=== PATIENT | male | born 1955 | race American Indian/Alaskan Native ===

== ENCOUNTER 2016-04-06 11:21 | Inpatient (IN) | payer MEDICARE, OTHER ==
[2016-04-06] MEDS ORDERED: NORCO 5/325 ONE (12:51)
--- NOTE | 2016-04-06 15:12 | Admit Criteria Form ---
Admission Criteria Documentation: UROLOGIC DISEASE [facility] Clinical Indications for Admission to Inpatient Care (Place ' X' for any and all applicable criteria): Hospital admission is needed for appropriate care of the patient because of ANY ONE of the following: [ ]I. New-onset Reduced urine output, or hydronephrosis remaining after emergency or observation level care indicated by ANY ONE the following (1)(2) [ ]a) Urine output less than 0.5 mL/kg/hour for 6 hours in adult [ ]b) Anuria (urine output less than 0.1 mL/kg/hour) for 4 hours in any age group [ ]c) Reduced output in child as indicated by ANY ONE of the following (3) [ ]i) Urine output less than 2 mL/kg/hour for 6 hours in younger than 2 [ ]ii) Urine output less than 1 mL/kg/hour for 6 hours in child younger than 12 years [ ]iii) Urine output less than 0.75 mL/kg/hour for 6 hours in adolescent younger than 18 years [ ]II. Acute urinary retention requiring inpatient management as indicated by ANY ONE of the following(1)(13): [ ]a) Hemodynamic instability remaining after emergency or observation level care (as appropriate) [ ]b) Retention cannot be alleviated via emergency or observation level care (eg, urinary catheter placement) [ ]c) Acute neurologic etiology (eg, cauda equina) [ ]d) Dehydration or other complications not manageable with emergency or observation level care [ ]e) Acute kidney injury (that does not qualify as Acute renal failure ) requiring inpatient care indicated by ALL of the following(5)(6)(7)(8) (9): [ ]i) Acute kidney injury indicated by ANY ONE of the following: [ ]1) 2-fold or more rise in serum creatinine from baseline [ ]2) Reduction of more than 50% in estimated glomerular filtration rate from baseline [ ]3) Urine output less than 0.5 mL/kg/hr for 12 hours despite adequate volume status [ ]ii) Worsening clinical status (eg, rising creatinine) despite outpatient and observation care treatment (eg, hydration) [ ]III. Gross hematuria requiring inpatient management as indicated by ANY ONE of the following(1)(2): [ ]a) Evidence of renal obstruction [ ]b) Reduced urine output (eg urine output <0.5mL/kg per hr over 6 hrs) [ ]c) Clot retention after urinary catheterization and irrigation [ ]d) Anemia [ ]e) Systemic cause needing inpatient treatment (eg, Goodpasture syndrome) [X ]IV. Urologic infection requiring inpatient care as indicated by ANY ONE of the following(10)(11)(12): [ ]a) Dehydration that is severe or persistent [ ]b) Hemodynamic instability [ ]c) Failure of, or inability to tolerate, outpatient treatment regimen [ ]d) Increased creatinine without known prior cause [ X]e) Known renal or urologic abnormalities (eg, indwelling catheter , structural abnormalities) [ ]f) Recent urologic manipulation [ ]g) Urinary obstruction [ ]h) Immunocompromised state [ ]V. Renal disease needing inpatient care (eg, nephritis, nephrosis) as indicated by ANY ONE of the following(2)(3)(4): [ ]a) Systemic cause (eg, Goodpasture syndrome) needing inpatient care (5) [ ]b) Rapidly progressive disease needing inpatient care (eg, plasmapheresis, immunosuppression)(6) [ ]c) Hemoptysis [ ]d) Hemolysis or thrombosis [ ]e) Anasarca needing inpatient care [ ]f) Hemolytic uremic syndrome(7)(8) [ ]g) Acute renal failure [ ]h) Significant uremic complications as indicated by ANY ONE of the following(1)(2)(3): [ ]i) Outpatient therapy is ineffective or not feasible for ANY ONE of the following: [ ]1) Severe heart failure [ ]2) Severe hypertension [ ]3) Pleural effusion [ ]4) Pericarditis or pericardial effusion [ ]ii) Cardiac arrhythmias of immediate concern [ ]iii) Recurrent seizures [ ]iv) Bleeding abnormalities (eg, platelet dysfunction) with active (eg, gastrointestinal) bleeding [ ]v) Dialysis indicated before long-term access or ambulatory arrangements can be made [ ]vi) Significant metabolic or electrolyte abnormalities (eg , severe acidosis or hyperkalemia) [ ]vii) Intractable nausea or vomiting [ ]viii) Encephalopathy [ ]. New-onset oliguria, anuria, or hydronephrosis not responsive to emergency and observation care treatment (as appropriate)(1) [ ]VII. Trauma to renal, genital, or urologic system requiring inpatient medical care(14)(15)(16)(17) [ ]VIII.Scrotal, testicular, or epididymal disorder requiring inpatient care indicated by ANY ONE of the following(1)(14)(15)(16): [ ]a) Scrotal edema or infection not manageable with emergency or observation level care [ ]b) Orchitis not manageable with emergency or observation level care [ ]c) Epididymitis not manageable with emergency or observation level of care [ ]d) Other scrotal, testicular, or epididymal disorder (eg, infection, inflammation) not manageable with emergency or observation level care [ ]IX. Urologic Disease and ALL of the following: [ ]a) Symptom or finding for which emergency and observation care have failed or are not considered appropriate (Use General Criteria: Observation Care as appropriate) [ ]b) Presence of ANY ONE of the following: [ ]i) A General Admission Criteria [ ]ii) A Pediatric General Admission Criteria The original [facility] content created by [facility] has been revised. The portions of the content which have been revised are identified through the use of italic text or in bold, and [facility] has neither reviewed nor approved the modified material. All other unmodified content is copyright [facility]. Please see references footnoted in the original [facility] edition 2016 Admission Criteria Met: Yes
[2016-04-06] MEDS ORDERED: ROCEPHIN/NS 1 GM/50 ML 1 GM/50 ML BAG IV ONE (16:00)
[2016-04-06] MEDS ORDERED: TYLENOL PO PRN (17:34)
[2016-04-06] MEDS ORDERED: ZOFRAN IV PRN (17:34)
[2016-04-06] MEDS ORDERED: NORCO 5/325 PO PRN (17:34)
--- NOTE | 2016-04-06 17:41 | History and Physical Report ---
History of Present Illness Date of examination: 04/06/16 Chief complaint: Blood in the urine History of present illness: Patient is a 61-year-old man with history of BPH and urinary obstruction with chronic indwelling Castro the urethral stents initially presented to [facility] today with constant progressively worse, bright red blood from penis. He was seen by ED staff at [facility] and his urologist Dr. Kinney told him to bring patient to [facility] where he had privileges for hospitalist to admit this his patient. It appears that [facility] emergency room staff changed out his Castro catheter which may have exacerbated hematuria. He was found have urinary tract infection with evidence of sepsis. The patient denies any chest pain, shortness of breath, abdominal pain, fevers chills. Patient does have bilateral back pain which is chronic. Past History Past Medical History: other (as hpi) Past Surgical History: Other (Uretheral stents) Social history: smoking, full code. denies: alcohol abuse, prescription drug abuse, IV drug use Family history: no significant family history (he denies) Medications and Allergies Allergies Allergy/AdvReac Type Severity Reaction Status Date / Time No Known Allergies Allergy Verified 06/27/13 21:15 Home Medications Medication Instructions Recorded Confirmed Last Taken Type Tamsulosin [Flomax] 0.4 mg PO QDAY 11/23/12 04/06/16 02/27/14 History Ferrous Gluconate [Iron] 1 tab PO QDAY 01/20/13 04/06/16 02/26/14 History Cephalexin [Keflex] 500 mg PO QID #20 capsule 01/12/16 04/06/16 Unknown Rx Sodium Bicarbonate 325 mg PO DAILY 01/12/16 04/06/16 Unknown History Active Meds: Active Medications Acetaminophen (Tylenol) 650 mg PO Q6H PRN PRN Reason: Non Cardiac Pain or Temp>100.5 Acetaminophen/Hydrocodone Bitart ([place] 5/325) 1 each PO Q4H PRN PRN Reason: Pain, Moderate (4-6) Sodium Chloride (Nacl 0.9% 1000 Ml) mls @ 100 mls/hr IV DIRECT WILLIE Ondansetron HCl (Zofran) 4 mg IV Q4H PRN PRN Reason: Nausea And Vomiting Pantoprazole Sodium (Protonix) 40 mg PO QDAY WILLIE Sodium Bicarbonate (Sodium Bicarbonate) 325 mg PO DAILY WILLIE Tamsulosin HCl (Flomax) 0.4 mg PO QDAY WILLIE Review of Systems All systems: negative (as HPI and all other ROS reviewed and negative.) Exam - Physical Exam Narrative exam: VSS reviewed GEN: Thin frail man, NAD, AWAKE, ALERT, ORIENTATED 3 HEENT: NCAT, PERRL, EOMI, OP CLEAR NECK: SUPPLE, NO THYROMEGALY, NO JVD, NO LAD CVS: RRR, NORMAL S1S2 LUNGS/CHEST: CTA B, NORMAL CHEST EXPANSION B, GOOD AIR ENTRY B ABD: SOFT NTND, GBS, NO REBOUND OR GUARDING, no CVA tenderness, uncircumcised penis catheter in place with blood around the meatus EXT/SKIN: NO SIGNIFICANT EDEMA OR RASH MSK: FROM X 4 EXTREMITIES NEURO: CN 2-12 GROSSLY INTACT, NO FOCAL DEFICITS PSY: CALM Assessment and Plan [employer] EMR not working properly, due to downtime. Vitals, labs, tests are not crossing over into [employer]. Patient is a 61-year-old man with history of BPH and urinary obstruction with chronic indwelling Castro the urethral stents initially presented to [facility] today with constant progressively worse, bright red blood from penis. He was seen by ED staff at [facility] and his urologist Dr. Kinney told him to bring patient to [facility] where he had privileges for hospitalist to admit this his patient. It appears that [facility] emergency room staff changed out his Castro catheter which may have exacerbated hematuria. He was found have urinary tract infection with evidence of sepsis. The patient denies any chest pain, shortness of breath, abdominal pain, fevers chills. Patient does have bilateral back pain which is chronic. 1. Uti with sepsis: get urine ctx, iv abx, ivf 2. Suspect ARF due to bph/Uropathy: get IV fluid, Dr. Driscoll is already aware of patient 3. Tobacco dependancy: counseling done.
[2016-04-06] MEDS ORDERED: NACL 0.9% 1000 ML 1,000 ML ONE (19:04)
[2016-04-06] MEDS: NACL 0.9% 1000 ML 1,000 ML IV SCH ×2 (19:20→23:31)
[2016-04-07 03:47] LABS: Hematocrit 43.2 % (35.5-45.6); Hemoglobin 14.1 gm/dl (11.8-15.2); Mean Corpuscular HGB Conc 33 % (32-34); Mean Corpuscular Hemoglobin 31 pg (28-32); Mean Corpuscular Volume 95 fl (84-94); Platelet Count 237 K/mm3 (140-440); Red Blood Count 4.55 M/mm3 (3.65-5.03); Red Cell Distribution Width 13.2 % (13.2-15.2)
[2016-04-07 03:48] LABS: Anisocytosis Few; Platelet Estimate Consistent w Auto
[2016-04-07 03:49] LABS: Diff Status Complete; INR 0.99 (0.87-1.13); Partial Thromboplastin Time 25.9 Sec. (24.2-36.6)
[2016-04-07 07:53] LABS: Hematocrit 32.9 % (35.5-45.6); Hemoglobin 10.7 gm/dl (11.8-15.2); Mean Corpuscular HGB Conc 33 % (32-34); Mean Corpuscular Hemoglobin 31 pg (28-32); Mean Corpuscular Volume 95 fl (84-94); Platelet Count 184 K/mm3 (140-440); Red Blood Count 3.46 M/mm3 (3.65-5.03)
[2016-04-07 07:54] LABS: White Blood Count 21.4 K/mm3 (4.5-11.0)
[2016-04-07 08:56] LABS: Calcium 8.2 mg/dL (8.4-10.2); Chloride 103.4 mmol/L (98-107); Potassium 3.6 mmol/L (3.6-5.0)
[2016-04-07] MEDS: FLOMAX PO SCH (09:41)
[2016-04-07] MEDS: PROTONIX PO SCH (09:41)
[2016-04-07] MEDS: SODIUM BICARBONATE PO SCH (09:41)
[2016-04-07] MEDS ORDERED: MAXIPIME/NS 1 GM/100 ML 1 GM/100 ML BAG IV SCH (12:00)
--- NOTE | 2016-04-07 12:06 | Progress Note ---
Assessment and Plan URINARY RETENTION / BPH AKD/CKD LEUKOCYTOSIS - AFEB - Cr 2.5 today - get DAKOTA - cath in - placed in ER over wire 22fr - f/u outpt 3-4 weeks when discharged Subjective Date of service: 04/07/16 Interval history: resting comfotably Objective - Constitutional Vitals: Vital Signs - 12hr 04/07/16 04/07/16 02:25 07:45 Temperature 97.4 F L Pulse Rate [ 80 Radial] Respiratory 18 16 Rate Blood Pressure 138/55 [Left Radial Artery] O2 Sat by Pulse 98 Oximetry - Gastrointestinal Rectal Exam: other (cath clear yellow) - Labs CBC & Chem 7: 04/07/16 07:29 04/07/16 07:29 Labs: Abnormal lab results 04/07/16 04/07/16 Range/Units 07:29 07:29 WBC 21.4 H (4.5-11.0) K/mm3 RBC 3.46 L (3.65-5.03) M/mm3 Hgb 10.7 L D (11.8-15.2) gm/dl Hct 32.9 L D (35.5-45.6) % MCV 95 H (84-94) fl RDW 13.0 L (13.2-15.2) % BUN 40 H (9-20) mg/dL Creatinine 2.5 H (0.8-1.5) mg/dL Glucose 101 H (75-100) mg/dL Calcium 8.2 L (8.4-10.2) mg/dL
[2016-04-07] MEDS: MAXIPIME/NS 1 GM/100 ML 1 GM/100 ML BAG IV SCH ×2 (12:31→23:40)
[2016-04-07] MEDS ORDERED: LEVAQUIN 750MG/150ML 750 MG/150 ML BAG IV SCH ×2 (13:00→15:00)
[2016-04-07] MEDS: NACL 0.9% 1000 ML 1,000 ML IV SCH (20:50)
--- NOTE | 2016-04-07 23:12 | Progress Note ---
Assessment and Plan - Patient Problems (1) Sepsis Current Visit: Yes Status: Acute Qualifiers: Sepsis type: S Plan to address problem: Sepsis protocol: IV abx, IVF, supportive care, serial lactate (2) UTI (urinary tract infection) Current Visit: Yes Status: Acute Qualifiers: Urinary tract infection type: U Hematuria presence: H Indwelling urinary catheter type: I Encounter type: E Plan to address problem: IV abx, supportive care. (3) Hematuria due to acute cystitis Current Visit: Yes Status: Acute Plan to address problem: Urology consulted, continue current abx therapy, supportive care. (4) DVT prophylaxis Current Visit: Yes Status: Acute History Interval history: Pt lying in bed, Pt denies pain. Pt denies fever, chills, CP, Palpitations,NVD. Pt states that he feels better today. Pt informed of care plan. Hospitalist Physical - Constitutional Vitals: Temp Pulse Resp BP Pulse Ox 98.7 F 90 18 112/69 99 04/07/16 16:55 04/07/16 16:55 04/07/16 16:55 04/07/16 16:55 04/07/16 16:55 General appearance: Present: no acute distress, cachectic - EENT Eyes: Present: PERRL ENT: hearing intact - Neck Neck: Present: supple - Respiratory Respiratory effort: normal Respiratory: bilateral: CTA - Cardiovascular Rhythm: regular Heart Sounds: Present: S1 & S2 - Extremities Extremities: no ischemia Peripheral Pulses: within normal limits - Abdominal General gastrointestinal: soft, non-tender, non-distended, no hepatomegaly, no splenomegaly - Integumentary Integumentary: Present: clear, dry - Psychiatric Psychiatric: appropriate mood/affect, cooperative - Neurologic Neurologic: CNII-XII intact Results - Labs CBC & Chem 7: 04/07/16 07:29 04/07/16 07:29 Labs: Laboratory Last Values WBC 21.4 K/mm3 (4.5-11.0) H 04/07/16 07:29 RBC 3.46 M/mm3 (3.65-5.03) L 04/07/16 07:29 Hgb 10.7 gm/dl (11.8-15.2) L D 04/07/16 07:29 Hct 32.9 % (35.5-45.6) L D 04/07/16 07:29 MCV 95 fl (84-94) H 04/07/16 07:29 MCH 31 pg (28-32) 04/07/16 07:29 MCHC 33 % (32-34) 04/07/16 07:29 RDW 13.0 % (13.2-15.2) L 04/07/16 07:29 Plt Count 184 K/mm3 (140-440) 04/07/16 07:29 Add Manual Diff Complete 04/06/16 13:15 Seg Neuts % (Manual) 86 % (40.0-70.0) H 04/06/16 13:15 Band Neutrophils % 9 % 04/06/16 13:15 Lymphocytes % (Manual) 2 % (13.4-35.0) L 04/06/16 13:15 Monocytes % (Manual) 3 % (0.0-7.3) 04/06/16 13:15 Nucleated RBC % Not Reportable 04/06/16 13:15 WBC Morphology Not Reportable 04/06/16 13:15 Hypersegmented Neuts Not Reportable 04/06/16 13:15 Hyposegmented Neuts Not Reportable 04/06/16 13:15 Hypogranular Neuts Not Reportable 04/06/16 13:15 Smudge Cells Not Reportable 04/06/16 13:15 Toxic Granulation Not Reportable 04/06/16 13:15 Toxic Vacuolation Not Reportable 04/06/16 13:15 Dohle Bodies Not Reportable 04/06/16 13:15 Pelger-Huet Anomaly Not Reportable 04/06/16 13:15 Wanda Rods Not Reportable 04/06/16 13:15 Platelet Estimate Consistent w auto 04/06/16 13:15 Clumped Platelets Not Reportable 04/06/16 13:15 Plt Clumps, EDTA Not Reportable 04/06/16 13:15 Large Platelets Not Reportable 04/06/16 13:15 Giant Platelets Not Reportable 04/06/16 13:15 Platelet Satelliting Not Reportable 04/06/16 13:15 Plt Morphology Comment Not Reportable 04/06/16 13:15 RBC Morphology Not Reportable 04/06/16 13:15 Dimorphic RBCs Not Reportable 04/06/16 13:15 Polychromasia Not Reportable 04/06/16 13:15 Hypochromasia Not Reportable 04/06/16 13:15 Poikilocytosis Not Reportable 04/06/16 13:15 Anisocytosis Few 04/06/16 13:15 Microcytosis Not Reportable 04/06/16 13:15 Macrocytosis Not Reportable 04/06/16 13:15 Spherocytes Not Reportable 04/06/16 13:15 Pappenheimer Bodies Not Reportable 04/06/16 13:15 Sickle Cells Not Reportable 04/06/16 13:15 Target Cells Not Reportable 04/06/16 13:15 Tear Drop Cells Not Reportable 04/06/16 13:15 Ovalocytes Not Reportable 04/06/16 13:15 Helmet Cells Not Reportable 04/06/16 13:15 [place] Bodies Not Reportable 04/06/16 13:15 [place] Rings Not Reportable 04/06/16 13:15 [place] Cells Not Reportable 04/06/16 13:15 Bite Cells Not Reportable 04/06/16 13:15 Crenated Cell Not Reportable 04/06/16 13:15 Elliptocytes Not Reportable 04/06/16 13:15 Acanthocytes (Spur) Not Reportable 04/06/16 13:15 Rouleaux Not Reportable 04/06/16 13:15 Hemoglobin C Crystals Not Reportable 04/06/16 13:15 Schistocytes Not Reportable 04/06/16 13:15 Malaria parasites Not Reportable 04/06/16 13:15 [place] Bodies Not Reportable 04/06/16 13:15 Hem Pathologist Commnt No 04/06/16 13:15 PT 13.0 Sec. (12.2-14.9) 04/06/16 13:15 INR 0.99 (0.87-1.13) 04/06/16 13:15 APTT 25.9 Sec. (24.2-36.6) 04/06/16 13:15 Sodium 142 mmol/L (137-145) 04/07/16 07:29 Potassium 3.6 mmol/L (3.6-5.0) 04/07/16 07:29 Chloride 103.4 mmol/L (98-107) 04/07/16 07:29 Carbon Dioxide 26 mmol/L (22-30) 04/07/16 07:29 Anion Gap 16 mmol/L 04/07/16 07:29 BUN 40 mg/dL (9-20) H 04/07/16 07:29 Creatinine 2.5 mg/dL (0.8-1.5) H 04/07/16 07:29 Estimated GFR 32 ml/min 04/07/16 07:29 BUN/Creatinine Ratio 16.00 % 04/07/16 07:29 Glucose 101 mg/dL (75-100) H 04/07/16 07:29 Lactic Acid 0.8 mmol/L (0.7-2.0) 04/07/16 11:58 Calcium 8.2 mg/dL (8.4-10.2) L 04/07/16 07:29
[2016-04-08 08:32] LABS: Basophils % (Auto) 0.4 % (0.0-1.8); Hematocrit 30.6 % (35.5-45.6); Hemoglobin 9.9 gm/dl (11.8-15.2); Mean Corpuscular HGB Conc 32 % (32-34); Mean Corpuscular Hemoglobin 30 pg (28-32); Mean Corpuscular Volume 93 fl (84-94); Platelet Count 162 K/mm3 (140-440); Red Blood Count 3.28 M/mm3 (3.65-5.03); Red Cell Distribution Width 12.9 % (13.2-15.2); White Blood Count 14.5 K/mm3 (4.5-11.0)
[2016-04-08] MEDS: MAXIPIME/NS 1 GM/100 ML 1 GM/100 ML BAG IV SCH ×2 (10:00→22:31)
[2016-04-08] MEDS: FLOMAX PO SCH (11:08)
[2016-04-08] MEDS: SODIUM BICARBONATE PO SCH (11:08)
[2016-04-08] MEDS: PROTONIX PO SCH (11:09)
[2016-04-08] MEDS: NACL 0.9% 1000 ML 1,000 ML IV SCH (11:29)
--- NOTE | 2016-04-08 19:16 | Progress Note ---
Assessment and Plan - Patient Problems (1) Sepsis Current Visit: Yes Status: Acute Qualifiers: Sepsis type: S Plan to address problem: Sepsis protocol: IV abx, IVF, supportive care, serial lactate (2) UTI (urinary tract infection) Current Visit: Yes Status: Acute Qualifiers: Urinary tract infection type: U Hematuria presence: H Indwelling urinary catheter type: I Encounter type: E Plan to address problem: IV abx, supportive care. (3) Hematuria due to acute cystitis Current Visit: Yes Status: Acute Plan to address problem: Urology consulted, continue current abx therapy, supportive care. D/C home with leg bag and f/u as outpatient (4) DVT prophylaxis Current Visit: Yes Status: Acute History Interval history: Pt lying in bed, Pt denies pain. Pt denies fever, chills, CP, Palpitations,NVD. Pt states that he feels better today. Pt informed of care plan. Pt states that he wants to go home.Pt informed of leukocytosis, and sepsis and advised to stay for further care. Hospitalist Physical - Constitutional Vitals: Temp Pulse Resp BP Pulse Ox 98.5 F 65 14 122/75 98 04/08/16 14:38 04/08/16 14:38 04/08/16 14:38 04/08/16 14:38 04/08/16 14:38 General appearance: Present: no acute distress, cachectic - EENT Eyes: Present: PERRL, EOM intact ENT: hearing intact - Neck Neck: Present: supple - Respiratory Respiratory: bilateral: CTA - Cardiovascular Rhythm: regular Heart Sounds: Present: S1 & S2 - Extremities Extremities: no ischemia Peripheral Pulses: within normal limits - Abdominal General gastrointestinal: soft, non-tender, non-distended - Integumentary Integumentary: Present: clear, dry - Psychiatric Psychiatric: appropriate mood/affect, cooperative - Neurologic Neurologic: CNII-XII intact Results - Labs CBC & Chem 7: 04/08/16 08:04 04/07/16 07:29 Labs: Laboratory Last Values WBC 14.5 K/mm3 (4.5-11.0) H 04/08/16 08:04 RBC 3.28 M/mm3 (3.65-5.03) L 04/08/16 08:04 Hgb 9.9 gm/dl (11.8-15.2) L 04/08/16 08:04 Hct 30.6 % (35.5-45.6) L 04/08/16 08:04 MCV 93 fl (84-94) 04/08/16 08:04 MCH 30 pg (28-32) 04/08/16 08:04 MCHC 32 % (32-34) 04/08/16 08:04 RDW 12.9 % (13.2-15.2) L 04/08/16 08:04 Plt Count 162 K/mm3 (140-440) 04/08/16 08:04 Lymph % (Auto) 8.1 % (13.4-35.0) L 04/08/16 08:04 [place] % (Auto) 6.7 % (0.0-7.3) 04/08/16 08:04 Eos % (Auto) 1.0 % (0.0-4.3) 04/08/16 08:04 Baso % (Auto) 0.4 % (0.0-1.8) 04/08/16 08:04 Lymph # 1.2 K/mm3 (1.2-5.4) 04/08/16 08:04 [place] # 1.0 K/mm3 (0.0-0.8) H 04/08/16 08:04 Eos # 0.1 K/mm3 (0.0-0.4) 04/08/16 08:04 Baso # 0.1 K/mm3 (0.0-0.1) 04/08/16 08:04 Add Manual Diff Complete 04/06/16 13:15 Seg Neutrophils % 83.8 % (40.0-70.0) H 04/08/16 08:04 Seg Neuts % (Manual) 86 % (40.0-70.0) H 04/06/16 13:15 Band Neutrophils % 9 % 04/06/16 13:15 Lymphocytes % (Manual) 2 % (13.4-35.0) L 04/06/16 13:15 Monocytes % (Manual) 3 % (0.0-7.3) 04/06/16 13:15 Nucleated RBC % Not Reportable 04/06/16 13:15 Seg Neutrophils # 12.2 K/mm3 (1.8-7.7) H 04/08/16 08:04 WBC Morphology Not Reportable 04/06/16 13:15 Hypersegmented Neuts Not Reportable 04/06/16 13:15 Hyposegmented Neuts Not Reportable 04/06/16 13:15 Hypogranular Neuts Not Reportable 04/06/16 13:15 Smudge Cells Not Reportable 04/06/16 13:15 Toxic Granulation Not Reportable 04/06/16 13:15 Toxic Vacuolation Not Reportable 04/06/16 13:15 Dohle Bodies Not Reportable 04/06/16 13:15 Pelger-Huet Anomaly Not Reportable 04/06/16 13:15 Wanda Rods Not Reportable 04/06/16 13:15 Platelet Estimate Consistent w auto 04/06/16 13:15 Clumped Platelets Not Reportable 04/06/16 13:15 Plt Clumps, EDTA Not Reportable 04/06/16 13:15 Large Platelets Not Reportable 04/06/16 13:15 Giant Platelets Not Reportable 04/06/16 13:15 Platelet Satelliting Not Reportable 04/06/16 13:15 Plt Morphology Comment Not Reportable 04/06/16 13:15 RBC Morphology Not Reportable 04/06/16 13:15 Dimorphic RBCs Not Reportable 04/06/16 13:15 Polychromasia Not Reportable 04/06/16 13:15 Hypochromasia Not Reportable 04/06/16 13:15 Poikilocytosis Not Reportable 04/06/16 13:15 Anisocytosis Few 04/06/16 13:15 Microcytosis Not Reportable 04/06/16 13:15 Macrocytosis Not Reportable 04/06/16 13:15 Spherocytes Not Reportable 04/06/16 13:15 Pappenheimer Bodies Not Reportable 04/06/16 13:15 Sickle Cells Not Reportable 04/06/16 13:15 Target Cells Not Reportable 04/06/16 13:15 Tear Drop Cells Not Reportable 04/06/16 13:15 Ovalocytes Not Reportable 04/06/16 13:15 Helmet Cells Not Reportable 04/06/16 13:15 [place] Bodies Not Reportable 04/06/16 13:15 [place] Rings Not Reportable 04/06/16 13:15 [place] Cells Not Reportable 04/06/16 13:15 Bite Cells Not Reportable 04/06/16 13:15 Crenated Cell Not Reportable 04/06/16 13:15 Elliptocytes Not Reportable 04/06/16 13:15 Acanthocytes (Spur) Not Reportable 04/06/16 13:15 Rouleaux Not Reportable 04/06/16 13:15 Hemoglobin C Crystals Not Reportable 04/06/16 13:15 Schistocytes Not Reportable 04/06/16 13:15 Malaria parasites Not Reportable 04/06/16 13:15 Jeronimo Bodies Not Reportable 04/06/16 13:15 Hem Pathologist Commnt No 04/06/16 13:15 PT 13.0 Sec. (12.2-14.9) 04/06/16 13:15 INR 0.99 (0.87-1.13) 04/06/16 13:15 APTT 25.9 Sec. (24.2-36.6) 04/06/16 13:15 Sodium 142 mmol/L (137-145) 04/07/16 07:29 Potassium 3.6 mmol/L (3.6-5.0) 04/07/16 07:29 Chloride 103.4 mmol/L (98-107) 04/07/16 07:29 Carbon Dioxide 26 mmol/L (22-30) 04/07/16 07:29 Anion Gap 16 mmol/L 04/07/16 07:29 BUN 40 mg/dL (9-20) H 04/07/16 07:29 Creatinine 2.5 mg/dL (0.8-1.5) H 04/07/16 07:29 Estimated GFR 32 ml/min 04/07/16 07:29 BUN/Creatinine Ratio 16.00 % 04/07/16 07:29 Glucose 101 mg/dL (75-100) H 04/07/16 07:29 Lactic Acid 0.6 mmol/L (0.7-2.0) L 04/08/16 08:04 Calcium 8.2 mg/dL (8.4-10.2) L 04/07/16 07:29
[2016-04-09] MEDS: NACL 0.9% 1000 ML 1,000 ML IV SCH (06:03)
--- NOTE | 2016-04-09 08:50 | Discharge Summary ---
Providers - Providers Date of Admission: 04/06/16 17:17 Attending physician: JOSE FOSTER 04/06/16 17:23 Consult to Physician [CONS] Routine Consulting Provider: NATHANIEL DRISCOLL Reason For Exam: hematuria Place consult to:: Yamila CASTRO Notified:: yes Was contact made?: Yes If yes, spoke with:: Dr. Driscoll Comment:: Dr. Driscoll is the one who contacted me regarding this patient Primary care physician: SHAKILA SALDAÑA Hospitalization Condition: Stable Disposition: STILL A PATIENT - Discharge Diagnoses (1) Sepsis Status: Acute Qualifiers: Sepsis type: S (2) UTI (urinary tract infection) Status: Acute Qualifiers: Urinary tract infection type: U Hematuria presence: H Indwelling urinary catheter type: I Encounter type: E (3) Hematuria due to acute cystitis Status: Acute (4) DVT prophylaxis Status: Acute Core Measure Documentation - Palliative Care Palliative Care/ Comfort Measures: Not Applicable Exam - Constitutional Vitals: Temp Pulse Resp BP Pulse Ox 98.3 F 76 18 118/76 99 04/09/16 08:00 04/09/16 08:00 04/09/16 08:00 04/09/16 08:00 04/09/16 08:00 Plan Follow up with: SHAKILA SALDAÑA MD [Primary Care Provider] - 7 Days Prescriptions: Levofloxacin [Levaquin] 750 mg PO QDAY 7 Days
[2016-04-09] MEDS ORDERED: LEVAQUIN PO SCH (10:00)
[2016-04-09] MEDS: SODIUM BICARBONATE PO SCH (10:29)
[2016-04-09] MEDS: FLOMAX PO SCH (10:30)
[2016-04-09] MEDS: PROTONIX PO SCH (10:30)
[2016-04-09 11:05] LABS: Basophils % (Auto) 0.6 % (0.0-1.8); Eosinophils % (Auto) 2.8 % (0.0-4.3); Hematocrit 33.7 % (35.5-45.6); Mean Corpuscular HGB Conc 33 % (32-34); Mean Corpuscular Hemoglobin 31 pg (28-32); Mean Corpuscular Volume 95 fl (84-94); Platelet Count 183 K/mm3 (140-440); Red Blood Count 3.55 M/mm3 (3.65-5.03); White Blood Count 11.5 K/mm3 (4.5-11.0)
--- NOTE | 2016-04-09 11:23 | Event Note ---
Date: 04/08/16
--- NOTE | 2016-04-09 11:23 | Progress Note ---
Subjective Date of service: 04/09/16 Objective - Constitutional Vitals: Vital Signs - 12hr 04/08/16 04/09/16 04/09/16 23:35 08:00 10:33 Temperature 99.1 F 98.3 F Pulse Rate [ 78 Left] Pulse Rate [ 76 Radial] Respiratory 18 18 Rate Respiratory 18 Rate [Abdomen] Blood Pressure 108/74 118/76 [Left Arm] O2 Sat by Pulse 100 99 Oximetry - Labs CBC & Chem 7: 04/09/16 10:10 04/07/16 07:29 Labs: Abnormal lab results 04/09/16 Range/Units 10:10 WBC 11.5 H (4.5-11.0) K/mm3 RBC 3.55 L (3.65-5.03) M/mm3 Hgb 11.0 L (11.8-15.2) gm/dl Hct 33.7 L (35.5-45.6) % MCV 95 H (84-94) fl RDW 13.0 L (13.2-15.2) % Seg Neutrophils % 77.0 H (40.0-70.0) % Seg Neutrophils # 8.8 H (1.8-7.7) K/mm3
[2016-04-09 12:12] VITALS: BP 131/82
[2016-04-09] MEDS: MAXIPIME/NS 1 GM/100 ML 1 GM/100 ML BAG IV SCH (12:12)
== END 2016-04-09 14:10 | disposition home or self-care (01) | DRG 871 ==
LOC: ED 11:21 → 3A 17:17
PROVIDERS: ADMIT Internal Medicine; ATTEND Internal Medicine
DX: A41.9 Sepsis, unspecified organism (principal); N17.0 Acute kidney failure with tubular necrosis; N30.01 Acute cystitis with hematuria; N40.0 Benign prostatic hyperplasia without lower urinary tract symptoms; N13.9 Obstructive and reflux uropathy, unspecified; F17.210 Nicotine dependence, cigarettes, uncomplicated; G89.29 Other chronic pain; M54.9 Dorsalgia, unspecified; N18.9 Chronic kidney disease, unspecified; I48.91 Unspecified atrial fibrillation; Z98.890 Other specified postprocedural states; Z79.899 Other long term (current) drug therapy; Z71.6 Tobacco abuse counseling
CPT/HCPCS: 36415; 51702; 80048; 82140; 85007; 85025; 85027; 85610; 85730; 87086; 96365; C1769; J0692; J0696; J1956; J7030

== ENCOUNTER 2016-11-15 20:36 | Emergency (ER) | payer MEDICARE ==
[2016-11-15 20:54] VITALS: BP 147/87
== END 2016-11-15 22:40 | disposition left against medical advice (07) ==
LOC: ED 20:36
DX: Z53.21 Procedure and treatment not carried out due to patient leaving prior to being seen by health care provider (principal)

== ENCOUNTER 2018-07-31 20:49 | Emergency (ER) | payer MEDICARE ==
[2018-07-31 21:03] VITALS: BP 164/94
--- NOTE | 2018-07-31 23:43 | Emergency Department Report ---
ED Male HPI - General Chief complaint: Urogenital-Male Stated complaint: CATHER STOPPED UP Time Seen by Provider: 07/31/18 23:34 Source: patient Mode of arrival: Ambulatory Limitations: No Limitations - History of Present Illness Initial comments: Mr. Abdi Carreno is a very pleasant 63-year-old male with history of BPH who presents with Castro catheter and leg bag. He had not had any urine output for one hour. The urine is now flowing. No pain. No fever. No discomfort. He is followed by [facility]. This catheter had been placed a month ago. He has been catheter dependent for several years. MD Complaint: other (decreased urine output for one hour) -: Gradual Severity scale (0 -10): 0 Improves with: none Worsens with: none - Related Data Home Medications Medication Instructions Recorded Confirmed Last Taken Tamsulosin [Flomax] 0.4 mg PO QDAY 11/23/12 04/06/16 02/27/14 Ferrous Gluconate [Iron] 1 tab PO QDAY 01/20/13 04/06/16 02/26/14 Sodium Bicarbonate 325 mg PO DAILY 01/12/16 04/06/16 Unknown Previous Rx's Medication Instructions Recorded Last Taken Type cephALEXin [Keflex] 500 mg PO QID #20 capsule 01/12/16 Unknown Rx levoFLOXacin [Levaquin] 750 mg PO QDAY 7 Days tablet 04/08/16 Unknown Rx Allergies Allergy/AdvReac Type Severity Reaction Status Date / Time No Known Allergies Allergy Verified 11/15/16 20:50 ED Review of Systems ROS: Stated complaint: CATHER STOPPED UP Other details as noted in HPI Constitutional: denies: fever, malaise Gastrointestinal: denies: abdominal pain, vomiting Genitourinary: denies: urgency, dysuria ED Past Medical Hx - Past Medical History Previous Medical History?: Yes Hx Hypertension: No Hx Congestive Heart Failure: No Hx Diabetes: No Hx Deep Vein Thrombosis: No Hx Renal Disease: Yes (no dialysis) Hx Sickle Cell Disease: No Hx Kidney Stones: No Hx Asthma: No Hx COPD: No Hx Tuberculosis: No Hx HIV: No Additional medical history: enlarged prostate - Surgical History Past Surgical History?: Yes Hx Coronary Stent: No Hx Pacemaker: No Hx Internal Defibrillator: No Additional Surgical History: stents in kidneys-removed 2007 - Social History Smoking Status: Never Smoker Substance Use Type: None - Medications Home Medications: Home Medications Medication Instructions Recorded Confirmed Last Taken Type Tamsulosin [Flomax] 0.4 mg PO QDAY 11/23/12 04/06/16 02/27/14 History Ferrous Gluconate [Iron] 1 tab PO QDAY 01/20/13 04/06/16 02/26/14 History Sodium Bicarbonate 325 mg PO DAILY 01/12/16 04/06/16 Unknown History cephALEXin [Keflex] 500 mg PO QID #20 capsule 01/12/16 04/06/16 Unknown Rx levoFLOXacin [Levaquin] 750 mg PO QDAY 7 Days tablet 04/08/16 Unknown Rx ED Physical Exam - General Limitations: No Limitations General appearance: alert, in no apparent distress - Head Head exam: Present: atraumatic, normocephalic - ENT ENT exam: Present: mucous membranes moist - Neck Neck exam: Present: normal inspection, full ROM - Neurological Exam Neurological exam: Present: alert, oriented X3 - Psychiatric Psychiatric exam: Present: normal affect, normal mood - Skin Skin exam: Present: warm, dry, normal color - Other Other exam information: With the nurse at the bedside, examine leg bag which contained 200 mL of clear urine. I also observed urine draining directly from the catheter. ED Course Vital Signs 07/31/18 07/31/18 20:53 21:44 Temperature 97.4 F L 97.4 F L Pulse Rate 76 76 Respiratory 18 18 Rate Blood Pressure 164/94 164/94 O2 Sat by Pulse 100 100 Oximetry ED Medical Decision Making - Medical Decision Making Mr. Carreno presents with catheter Castro catheter complication. I have asked the nurse to irrigate the Castro catheter. We will leave the catheter in place. He'll call his urologist in the morning. Critical care attestation.: If time is entered above; I have spent that time in minutes in the direct care of this critically ill patient, excluding procedure time. ED Disposition Clinical Impression: Castro catheter problem Disposition: - TO HOME OR SELFCARE Is pt being admited?: No Does the pt Need Aspirin: No Condition: Stable Instructions: Castro Catheter Placement and Care (ED) Additional Instructions: Please call your urologist in the morning.
== END 2018-08-01 00:15 | disposition home or self-care (01) ==
LOC: ED 20:49
DX: T83.098A Other mechanical complication of other urinary catheter, initial encounter (principal)
CPT/HCPCS: 99282

== ENCOUNTER 2019-08-05 10:18 | Observation (INO) | payer MEDICARE ==
[2019-07-31 09:54] LABS: Hematocrit 39.4 % (35.5-45.6); Hemoglobin 13.1 gm/dl (11.8-15.2); Mean Corpuscular HGB Conc 33 % (32-34); Mean Corpuscular Volume 94 fl (84-94); Platelet Count 209 K/mm3 (140-440); Red Blood Count 4.18 M/mm3 (3.65-5.03); Red Cell Distribution Width 13.4 % (13.2-15.2)
[2019-07-31 10:11] LABS: Alanine Aminotransferase 9 units/L (7-56); Albumin 4.2 g/dL (3.9-5); BUN/Creatinine Ratio 16; Blood Urea Nitrogen 22 mg/dL (9-20); Calcium 9.9 mg/dL (8.4-10.2); Hemolysis Index 8
--- NOTE | 2019-08-05 08:28 | Anesthesia Consultation ---
Anesthesia Consult and Med Hx Date of service: 08/05/19 - Airway Anesthetic Teeth Evaluation: Dentures ROM Head & Neck: Adequate Mental/Hyoid Distance: Adequate Mallampati Class: Class II Intubation Access Assessment: Probably Good - Pulmonary Exam CTA: Yes - Pre-Operative Health Status ASA Pre-Surgery Classification: ASA3 Proposed Anesthetic Plan: General - Pulmonary Hx Smoking: No Hx Asthma: No COPD: No Hx Pneumonia: No Hx Sleep Apnea: No (MARIELLE PRE SCREEN HIGH RISK.) - Cardiovascular System Hx Hypertension: Yes (X 2 YRS) Hx Coronary Artery Disease: No Hx Percutaneous Transluminal Coronary Angioplasty (PTCA): No Hx Pacemaker: No Hx Internal Defibrillator: No Hx Valvular Heart Disease: No Hx Heart Murmur: No Hx Peripheral Vascular Disease: No - Central Nervous System Hx Seizures: No Hx Psychiatric Problems: No - Gastrointestinal Hx Gastroesophageal Reflux Disease: No - Endocrine Hx Renal Disease: Yes (no dialysis) Hx End Stage Renal Disease: No Hx Liver Disease: No Hx Non-Insulin Dependent Diabetes: No Hx Thyroid Disease: No - Hematic Hx Anemia: Yes Hx Sickle Cell Disease: No - Other Systems Hx Alcohol Use: No Hx Cancer: No Hx Obesity: No - Additional Comments Anesthesia Medical History Comments: PATIENT DENIED PREVIOUS ANESTHESIA COMPLICATIONS. nO ACUTE DISTRESS NOTED.
--- NOTE | 2019-08-05 08:29 | Anesthesia Day of Surgery ---
Anesthesia Day of Surgery - Day of Surgery Patient Examined: Yes Patient H&P Reviewed: Yes Patient is NPO: Yes
--- NOTE | 2019-08-05 10:06 | Post Operative Note ---
Date of procedure: 08/05/19 Pre-op diagnosis: aur Post-op diagnosis: same Findings: trilobar hypertrophy Procedure: cysto turp Anesthesia: GETA Surgeon: MONICA HUFF Estimated blood loss: 50-100ml Pathology: list (prostate) Specimen disposition: to lab Condition: stable Disposition: PACU
--- NOTE | 2019-08-05 10:08 | Operative Report ---
PREOPERATIVE DIAGNOSES: Chronic urinary retention, phimosis, slight erosion of the distal meatus. POSTOPERATIVE DIAGNOSES: Chronic urinary retention, phimosis, slight erosion of the distal meatus. PROCEDURE: Cystoscopy, transurethral resection of prostate. SURGEON: Dr. Whitaker. ANESTHESIA: General. FINDINGS: This is a gentleman with chronic retention. He has been managed with catheter changes, now presents for treatment. DESCRIPTION OF PROCEDURE: The patient was brought to the operating room and placed on the operating table. Following induction of anesthesia, placed in lithotomy position, prepped and draped in usual sterile fashion. Cystourethroscopy showed a very 3+ trabeculated bladder with a middle lobe. At this point, bipolar resectoscope was inserted with the 24-Korean loop and button. Resection was carried out in the middle lobe and then the lateral lobes. Careful attention was made not to resect distal to the veru. The right lobe was resected, then the left lobe. Hemostasis was excellent. The patient tolerated the procedure well. A 3-way catheter was inserted, confirmed on cystogram. Bladder was moderately trabeculated like a Shae tree on cystogram. We decided at this point, because he was obstructed and had contractions and urodynamics, not to place a suprapubic tube. The patient tolerated the procedure well and brought to recovery room in stable condition. Alonso drip was clear. JOB# [id number] RIN/RODOLFO
[~2019-08-05 10:18] MED LIST: GENTAMICIN/NS 80 MG/100 ML 100 ML IV NR; LACTATED RINGERS 1,000 ML IV SCH; LACTATED RINGERS 1,000 ML ONE; LIDOCAINE MPF (2%) 20 MG/1 ML VIAL 5 ML ONE; ONDANSETRON 4 MG/2 ML INJ ONE; SODIUM CHLORIDE 0.9% IRRIG SOLN 3000 ML IR ONE; WATER FOR IRRIG STERILE 1,500 ML BOTTLE IR ONE; ceFAZolin/STERILE WATER 2 GM/20 ML SYRINGE IV NR; dexAMETHasone 20 MG/5 ML VIAL ONE; fentaNYL 100 MCG/2 ML INJ IV PRN; fentaNYL 100 MCG/2 ML INJ ONE; propofoL 200 MG/20 ML VIAL IV ONE
[2019-08-05] MEDS ORDERED: oxyCODONE /ACETAMINOPHEN 5-325MG TAB PO PRN (10:30)
[2019-08-05] MEDS ORDERED: SODIUM CHLORIDE 0.9% IRR 1,000 ML BOTTLE IR PRN (10:30)
[2019-08-05] MEDS ORDERED: ONDANSETRON 4 MG ODT TAB PO PRN (10:30)
[2019-08-05] MEDS ORDERED: ACETAMINOPHEN 325 MG TAB PO PRN (10:30)
[2019-08-05] MEDS ORDERED: D5W/0.45% NACL/KCL 20 MEQ 20 MEQ/1,000 ML BAG IV SCH (11:00)
--- NOTE | 2019-08-05 13:12 | Post Anesthesia Evaluation ---
- Post Anesthesia Evaluation Patient Participated: Yes Airway Patent: Yes Stable Respiratory Function: Yes Nausea/Vomiting: No Temp > 96.8F: Yes Pain Manageable: Yes Adequeate Hydration: Yes Anesthesia Complications: No
--- NOTE | 2019-08-05 15:06 | Fluoroscopy Report ---
FLUOROSCOPY CYSTOGRAM STATIC HISTORY: Urine retention FINDINGS: 3 seconds of fluoroscopy time was provided by radiology during cystogram by urology. 2 fluo roscopic images of the pelvis are presented demonstrating a Castro catheter and a small amount of cont rast in the bladder. No filling defect or extravasation is appreciated. Please correlate with the ope rative report as needed. Signer Name: Vern Crisostomo Jr, MD Signed: 08/05/2019 3:01 PM Workstation Name: [id number]
[2019-08-05] MEDS: ceFAZolin/NS 1 GM/50 ML 1 GM/50 ML BAG IV SCH (17:48)
[2019-08-05] MEDS ORDERED: TAMSULOSIN 0.4 MG CAP PO SCH (18:00)
[2019-08-05] MEDS: SODIUM CHLORIDE 0.9% IRRIG SOLN 2000 ML IR SCH ×2 (20:00→23:00)
[2019-08-05] MEDS ORDERED: ZOLPIDEM 5 MG TAB PO PRN (22:00)
[2019-08-06] MEDS: ceFAZolin/NS 1 GM/50 ML 1 GM/50 ML BAG IV SCH ×2 (01:09→09:35)
[2019-08-06] MEDS: SODIUM CHLORIDE 0.9% IRRIG SOLN 2000 ML IR SCH ×2 (02:00→04:20)
[2019-08-06] MEDS: DOCUSATE SODIUM 100 MG CAP PO SCH ×2 (05:29→09:35)
[2019-08-06 10:16] LABS: Basophils % (Auto) 0.3 % (0.0-1.8); Eosinophils # (Auto) 0.1 K/mm3 (0.0-0.4); Hematocrit 35.3 % (35.5-45.6); Hemoglobin 11.8 gm/dl (11.8-15.2); Lymphocytes # (Auto) 1.7 K/mm3 (1.2-5.4); Lymphocytes % (Auto) 17.8 % (13.4-35.0); Mean Corpuscular HGB Conc 34 % (32-34); Mean Corpuscular Volume 95 fl (84-94); Monocytes # (Auto) 0.7 K/mm3 (0.0-0.8); Platelet Count 189 K/mm3 (140-440); Red Blood Count 3.73 M/mm3 (3.65-5.03); Red Cell Distribution Width 13.4 % (13.2-15.2)
[2019-08-06 10:32] LABS: BUN/Creatinine Ratio 12; Blood Urea Nitrogen 17 mg/dL (9-20); Hemolysis Index 7
--- NOTE | 2019-08-06 10:55 | Progress Note ---
Assessment and Plan looks well urine and drip crystal clear home with cath Subjective Date of service: 08/06/19 Principal diagnosis: AUR Objective - Constitutional Vitals: Vital Signs - 12hr 08/05/19 08/06/19 08/06/19 23:24 04:41 07:03 Temperature 98.1 F 97.7 F 98.7 F Pulse Rate 80 75 69 Respiratory 17 18 18 Rate Blood Pressure 118/79 138/92 140/86 O2 Sat by Pulse 97 99 96 Oximetry General appearance: Present: no acute distress - Neck Neck: supple - Respiratory Respiratory effort: normal Extremities: no ischemia - Gastrointestinal General gastrointestinal: Present: soft, non-tender - Labs CBC & Chem 7: 08/06/19 09:28 08/06/19 09:28 Labs: Abnormal lab results 08/06/19 Range/Units 09:28 Hct 35.3 L (35.5-45.6) % MCV 95 H (84-94) fl [place] % (Auto) 8.0 H (0.0-7.3) % Seg Neutrophils % 72.9 H (40.0-70.0) % Medications & Allergies - Medications Allergies/Adverse Reactions: Allergies No Known Allergies Allergy (Verified 11/15/16 20:50) Home Medications: Home Medications Medication Instructions Recorded Confirmed Last Taken Type Ferrous Gluconate [Iron] 1 tab PO QDAY 01/20/13 08/05/19 08/04/19 09:00 History Finasteride [Proscar] 5 mg PO DAILY 07/22/19 08/05/19 08/04/19 09:00 History Losartan [Cozaar] 50 mg PO QDAY 07/22/19 08/05/19 08/04/19 20:00 History Multivit-Min/FA/Lycopen/Lutein 1 each PO DAILY 07/22/19 08/05/19 08/04/19 09:00 History [Centrum Silver Men Tablet] Active Medications: Generic Name Dose Route Start Last Admin Trade Name Freq PRN Reason Stop Dose Admin Acetaminophen 650 mg 08/05/19 10:30 Tylenol PO Q4H PRN Pain MILD(1-3)/Fever >100.5/JAVED Docusate Sodium 100 mg 08/05/19 22:00 08/06/19 09:35 Colace PO 100 mg BID WILLIE Administration Potassium Chloride/Dextrose/Sod Cl 20 meq in 1,000 mls @ 125 mls/hr 08/05/19 11:00 08/05/19 22:17 D5w/0.45% Nacl/Kcl 20 Meq IV 125 mls/hr DIRECT WILLIE Administration Cefazolin Sodium 1 gm in 50 mls @ 100 mls/hr 08/05/19 17:00 08/06/19 09:35 Ancef/Ns 1 Gm/50 Ml IV 08/06/19 17:29 100 mls/hr Q8H WILLIE Administration Protocol Ondansetron HCl 4 mg 08/05/19 10:30 Zofran Odt PO Q8H PRN Nausea And Vomiting Oxycodone/Acetaminophen 2 tab 08/05/19 10:30 Percocet 5/325 PO Q6H PRN Pain, Moderate (4-6) Sodium Chloride 30 ml 08/05/19 10:30 08/05/19 20:00 Nacl 0.9% IR 30 ml Q2H PRN Administration Wound Care Sodium Chloride 2,000 ml 08/05/19 11:00 08/06/19 04:20 Nacl 0.9% IR 2,000 ml DIRECT WILLIE Administration Tamsulosin HCl 0.8 mg 08/05/19 18:00 08/05/19 17:48 Flomax PO 0.8 mg QPM WILLIE Administration Zolpidem Tartrate 5 mg 08/05/19 22:00 Ambien PO QHS PRN Sleep
--- NOTE | 2019-08-06 10:56 | Discharge Summary ---
Short Stay Discharge Plan Activity: other (no staining ) Weight Bearing Status: Full Weight Bearing Diet: low fat, low cholesterol, low salt Special Instructions: other (inc fluids take laxitive ) Follow up with: NICK BARBA JR, MD [Primary Care Provider] - 7 Days MONICA HUFF MD [Staff Physician] - 7 Days
[2019-08-06 11:58] VITALS: BP 136/82
== END 2019-08-06 12:15 | disposition home or self-care (01) ==
LOC: OR 10:18 → 3B-SURG 10:19
PROVIDERS: ADMIT Urology; ATTEND Urology
DX: Z03.818 Encounter for observation for suspected exposure to other biological agents ruled out (principal); N40.1 Benign prostatic hyperplasia with lower urinary tract symptoms; R33.9 Retention of urine, unspecified; N47.1 Phimosis; N36.8 Other specified disorders of urethra
CPT/HCPCS: 36415; 52601; 74430; 80048; 80053; 85025; 85027; 86850; 86900; 86901; 88305; 96365; 96366; A4217; G0378; J0690; J1100; J1580; J2405; J2704; J3010; J7120; Q9967; U0003